=== PATIENT | female | born 1975 | race African-American/Black ===

== ENCOUNTER 2022-08-08 22:30 | Emergency (ER) | payer OTHER ==
[~2022-08-08] VITALS: Ht 175.3 cm; Wt 68.0 kg
--- NOTE | 2022-08-09 01:35 | NUR ---
received 47 yrs female, c/o RT hand injury while playing basketball (rt index/middle)
[2022-08-09 03:45] VITALS: BP 118/55
--- NOTE | 2022-08-09 03:45 | NUR ---
Patient discharged to home in stable condition. Written and verbal after care instructions given. Patient verbalizes understanding of instruction.
== END 2022-08-09 04:15 | disposition home or self-care (01) ==
LOC: ER 22:36
DX: S63.652A Sprain of metacarpophalangeal joint of right middle finger, initial encounter (principal); W51.XXXA Accidental striking against or bumped into by another person, initial encounter; Y93.67 Activity, basketball; Y92.89 Other specified places as the place of occurrence of the external cause; Y99.8 Other external cause status
CPT/HCPCS: 73130-TC